=== PATIENT | female | born 1945 | race Hispanic/Latino ===

== ENCOUNTER → 2018-04-13 | Day surgery (SDC) | payer MEDICARE ==
[2018-04-12 12:17] LABS: BASOPHILS # (AUTO) 0.1 (0.0-0.1); BASOPHILS % 0.8 % (0.0-1.0); EOSINOPHILS # (AUTO) 0.3 (0.0-0.4); EOSINOPHILS % 4.6 % (0.0-6.0); HEMATOCRIT 34.8 % (34.2-44.1); HEMOGLOBIN 11.3 g/dL (12.0-16.0); LYMPHOCYTES % 28.7 % (18.0-39.1); MEAN CORPUSCULAR HEMOGLOBIN 26.7 pg (28-32); MEAN CORPUSCULAR HGB CONC 32.5 g/dL (31-35); MEAN CORPUSCULAR VOLUME 82.3 fL (81-99); MONOCYTES # (AUTO) 0.8 (0.2-0.8); MONOCYTES % 11.1 % (4.4-11.3); NEUTROPHILS # (AUTO) 3.9 (2.1-6.9); NEUTROPHILS % 54.2 % (38.7-80.0); PLATELET COUNT 312 x10e3/uL (140-360); RED BLOOD COUNT 4.23 x10e6/uL (3.6-5.1); RED CELL DISTRIBUTION WIDTH 13.6 % (11.7-14.4)
[2018-04-12 12:50] LABS: INR 0.83; PROTHROMBIN TIME 11.9 seconds (11.9-14.5)
[2018-04-12 12:53] LABS: ANION GAP 12.7 mmol/L (8-16); BLOOD UREA NITROGEN 16 mg/dL (7-26); BUN/CREATININE RATIO 20 (6-25); CALCIUM 9.8 mg/dL (8.4-10.2); CARBON DIOXIDE 24 mmol/L (22-29); CHLORIDE 95 mmol/L (98-107); CREATININE, SERUM 0.79 mg/dL (0.57-1.11); EST GLOMERULAR FILTRATION RATE > 60 ML/MIN (60-); GLUCOSE 353 mg/dL (74-118); POTASSIUM 4.7 mmol/L (3.5-5.1); SODIUM 127 mmol/L (136-145)
[~2018-04-13] VITALS: Ht 157.5 cm; Wt 63.5 kg
[~2018-04-13] MED LIST: AZITHROMYCIN250 MG PO; BENZOCAINE 20% SPR 60 ML CAN ONE; CARDIZEM CD180 MG PO; DIOVAN HCT 3201 EACH PO; FENTANYL CITRATE/PF 100MCG/2 ML INJ ONE; GLUCOPHAGE XR500 MG PO; GLUCOTROL5 MG PO; INSULIN REGULAR, HUMAN 100 UNIT/1 ML 3ML VIAL ONE; JANUVIA100 MG PO; LIDOCAINE HCL 2% LOCAL INJ 5 ML SDV VIAL INJ ONE; METOPROLOL SUCC50 MG PO; MIDAZOLAM HCL 2 MG/2 ML VIAL ONE; PANTOPRAZOLE SO40 MG PO; PRAVASTATIN SOD20 MG; PRINIVIL10 MG PO; PROPOFOL IV EMULSION 10 MG/ML 20 ML VIAL ONE; SODIUM CHLORIDE 0.9% 1000ML 1,000 ML ONE; TOPROL XL100 MG PO; ZOFRAN ODT4 MG PO
--- OUTSIDE RECORDS SUMMARY | 2018-04-13 08:36 | XMS REPORT | Summary of Care ---
Author Author [facility] [place] Organization [facility] [place] Address Unknown Phone Unavailable Encounter HQ Encntr_alias(FIN) [id number] Date(s): 08/18/16 - 08/18/16 [facility] [place] [address] [place] [phone] Discharge Disposition: Home or Self Care Attending Physician: Carlos Castro MD Vital Signs No data available for this section Problem List Condition Effective Dates Status Health Status Informant Diabetes Resolved mellitus(Confirmed) Hyperlipidemia(Confi Resolved rmed) Hypertension(Confirm Resolved ed) Allergies, Adverse Reactions, Alerts Substance Reaction Severity Status hydrALAZINE Active NKDA Active penicillins Active Medications No data available for this section Results No data available for this section Immunizations No data available for this section Procedures No data available for this section Social History No data available for this section Assessment and Plan No data available for this section
--- OUTSIDE RECORDS SUMMARY | 2018-04-13 08:36 | XMS REPORT | Continuity of Care Document ---
Author Author [facility] Interface Address Unknown Phone Unavailable Problems Problem Status Onset Date Classification Date Reported Comments Source Z12.31 - ENCNTR SCREEN MAMMOGRAM FOR MA Active 07/20/2016 [facility] V76.12 - SCREEN MAMMOGRA Active 10/27/2012 [facility] ELEVATED BLOOD PRESSURE Active 08/10/2012 [facility] HYPETENSION, DYSTONIC REACTION Active 08/10/2012 [facility] HYPERTENSION Active 01/07/2012 [facility] Diabetes mellitus Resolved Problem 08/21/2016 [facility] Hyperlipidemia Resolved Problem 08/21/2016 [facility] [place] Hypertension Resolved Problem 08/21/2016 [facility] [place] Diabetes mellitus Resolved Problem 08/13/2012 [facility] Hyperlipidemia Resolved Problem 08/13/2012 [facility] Hypertension Resolved Problem 08/13/2012 [facility] Medications Medication Details Route Status Patient Instructions Ordering Provider Order Date Source labetalol 200 mg oral tablet 200 mg, 1 tab, PO, BID, 60 tab, Substitution Allowed, TAB PO Active [facility] 08/11/2012 [facility] labetalol 200 mg, 1 tab, Route: PO, Drug form: TAB, BID, Dosing Weight 17.273, kg, Start date: 08/11/12 9:00:00, Duration: 30 day, Stop date: 09/09/12 17:00:00 PO No Longer Active [facility] 08/11/2012 [facility] insulin aspart 10 unit, 0.1 mL, Route: SUB-Q, Drug form: SOLN, TID-Before Meals, Dosing Weight 17.273, kg, PRN Blood Glucose Results, Start date: 08/11/12 4:54:00, Duration: 30 day, Stop date: 09/10/12 4:53:00 SUB-Q No Longer Active [facility] 08/11/2012 [facility] Dextrose 50% Syringe 25 gm, 50 mL, Route: IVP, Drug Form: INJ, Dosing Weight 17.273, kg, PRN, PRN Blood Glucose Results, Start date: 08/11/12 4:54:00, Duration: 30 day, Stop date: 09/10/12 4:53:00 IVP No Longer Active [facility] 08/11/2012 [facility] glucagon 1 mg, Route: IM, Drug form: PDR/INJ, PRN, Dosing Weight 17.273, kg, PRN Blood Glucose Results, Start date: 08/11/12 4:54:00, Duration: 30 day, Stop date: 09/10/12 4:53:00 IM No Longer Active [facility] 08/11/2012 [facility] metoprolol tartrate 50 mg, 1 tab, Route: PO, Drug form: TAB, Q12H, Dosing Weight 17.273, kg, Priority: STAT, Start date: 08/11/12 4:53:00, Duration: 30 day, Stop date: 09/09/12 21:00:00 PO No Longer Active [facility] 08/11/2012 [facility] acetaminophen 650 mg, 20.3 mL, Route: PO, Drug form: LIQ, Q4H, Dosing Weight 17.273, kg, PRN Pain 1-3/Temp > 100.4 F, Start date: 08/11/12 4:53:00, Duration: 30 day, Stop date: 09/10/12 4:52:00 PO No Longer Active [facility] 08/11/2012 [facility] morphine Sulfate 2 mg, 1 mL, Route: IVP, Drug form: INJ, Q3H, Dosing Weight 17.273, kg, PRN Pain Score 4-6, Start date: 08/11/12 4:53:00, Duration: 30 day, Stop date: 09/10/12 4:52:00 IVP No Longer Active [facility] 08/11/2012 [facility] ondansetron 4 mg, 2 mL, Route: IVP, Drug form: INJ, Q8H, Dosing Weight 17.273, kg, PRN Nausea & Vomiting, Start date: 08/11/12 4:53:00, Duration: 30 day, Stop date: 09/10/12 4:52:00 IVP No Longer Active [facility] 08/11/2012 [facility] nitroglycerin 0.4 mg sublingual tablet 0.4 mg, 1 tab, Route: SL, Drug form: TAB, Q5Min, PRN Chest Pain, Start date: 08/11/12 4:51:00, Duration: 30 day, Stop date: 09/10/12 4:50:00 SL No Longer Active [facility] 08/11/2012 [facility] atropine 0.5 mg, 5 mL, Route: IVP, Drug form: INJ, PRN, PRN Bradycardia, Start date: 08/11/12 4:51:00, Duration: 30 day, Stop date: 09/10/12 4:50:00 IVP No Longer Active [facility] 08/11/2012 [facility] metoprolol tartrate 50 mg, PO, BID, Substitution Allowed, TAB PO No Longer Active 08/11/2012 [facility] metFORmin 1000 mg oral tablet 1,000 mg, 1 tab, PO, BID, 30 tab, Substitution Allowed PO Active 08/11/2012 [facility] glipiZIDE 5 mg oral tablet 5 mg, 1 tab, PO, BID, Substitution Allowed, TAB PO Active 08/11/2012 [facility] Zofran 4 mg, 2 mL, Route: IV, Drug form: INJ, Q4H, Dosing Weight 17.273, kg, PRN as needed for nausea/vomiting, Start date: 08/10/12 20:33:00, Duration: 30 day, Stop date: 09/09/12 20:32:00 IV No Longer Active [facility] 08/11/2012 [facility] Phenergan 12.5 mg, Route: IVPB, ONCE, Dosing Weight 17.273, kg, Priority: STAT, Start date: 08/10/12 18:22:00, Stop date: 08/10/12 18:22:00 IVPB No Longer Active [facility] 08/10/2012 [facility] Zofran 4 mg, 2 mL, Route: IVP, Drug form: INJ, ONCE, Dosing Weight 17.273, kg, Priority: STAT, Start date: 08/10/12 17:18:00, Stop date: 08/10/12 17:18:00 IVP No Longer Active [facility] 08/10/2012 [facility] hydrALAZINE 10 mg, 0.5 mL, Route: IVP, Drug form: INJ, ONCE, Dosing Weight 17.273, kg, Priority: STAT, Start date: 08/10/12 16:05:00, Stop date: 08/10/12 16:05:00 IVP No Longer Active [facility] 08/10/2012 [facility] Sodium Chloride 0.9% IV 1,000 mL 1,000 mL, Rate: 100 ml/hr, Infuse over: 10 hr, Route: IV, kg, Total Volume: 1,000, Start date: 01/08/12 4:01:00, Duration: 30 day, Stop date: 02/07/12 4:00:00 IV No Longer Active [place] 01/08/2012 [facility] ondansetron 4 mg, Route: IVP, Drug form: INJ, ONCE, Dosing Weight 61.364, kg, Priority: STAT, Start date: 01/08/12 2:34:00, Stop date: 01/08/12 2:34:00 IVP No Longer Active [place] 01/08/2012 [facility] Saline Flush 0.9% 5 ml, Route: IVP, Drug Form: INJ, Dosing Weight 61.364, kg, PRN, PRN Line Flush, Start date: 01/08/12 1:18:00, Duration: 24 hr, Stop date: 01/09/12 1:17:00 IVP No Longer Active [place] 01/08/2012 [facility] aspirin 325 mg tablet 325 mg, 1 tab, Route: PO, Drug form: TAB, ONCE, Dosing Weight 61.364, kg, Priority: STAT, Start date: 01/08/12 1:18:00, Stop date: 01/08/12 1:18:00 PO No Longer Active [place] 01/08/2012 [facility] Allergies, Adverse Reactions, Alerts Substance Category Reaction Severity Reaction type Status Date Reported Comments Source hydrALAZINE drug allergy Allergy Active [facility] penicillins drug allergy Allergy Active [facility] Immunizations Immunization Date Given Site Status Last Updated Comments Source Results Order Name Results Value Reference Range Date Interpretation Comments Source Breast Mammo Scrn [facility] incl CAD MA Breast Mammo Scrn [facility] incl CAD MA - BREAST MAMMO SCRN [place] INCL CAD MA BILATERAL DIGITAL SCREENING MAMMOGRAM WITH CAD: 08/18/2016 CLINICAL: Routine/Screening. Current study was evaluated with a Computer Aided Detection (CAD) system. Comparison is made to exam dated: 11/30/2012 mammogram - [facility]. There are scattered fibroglandular densities in both breasts. There are benign vascular calcifications in both breasts. There also are benign scattered calcifications in both breasts. No significant masses, calcifications, or other findings are seen in either breast. There has been no significant interval change. IMPRESSION: BENIGN There is no mammographic evidence of malignancy. A 1 year screening mammogram is recommended. Professional services are provided by the [facility]. Charbel Woods M.D. cm/penrad:08/19/2016 08:38:25 Calender Machine Operator Helper: Cynthia MIRANDA(Vandana)(Ramone), Elle Marcelino This exam was dictated and interpreted by [id number] for OPAL Marcelino. letter sent: Normal exam Mammogram BI-RADS: 2 Benign 08/18/2016 - - Read by: Manuel Solorio MD Dictated Date/time: 08/19/16 08:38 Electronically Signed by: Manuel Solorio MD 08/19/16 08:38 FINAL REPORT [facility] Bone Density-Dual Energy Absorptionmetry Bone Density-Dual Energy Absorptionmetry - Bone Density-Dual Energy Absorptionmetry BONE DENSITY EVALUATION: 11/30/2012 CLINICAL DATA: Post menopausal. FINDINGS: Bone density evaluation was performed 11/30/2012 on the AP L1-L4 region of spine using Lunar Dual Energy X-Ray Absorptiometry. The BMD average for the exam is 0.957 g/cm2. The T-score is -1.90 and the Z-score is -0.10. These values indicate 98.0% for age-matched controls. This matches the World Health Organization's criteria for osteopenia and places the patient at a medium risk for fracture. An additional bone density evaluation was performed 11/30/2012 on the right femur neck using Lunar Dual Energy X-Ray Absorptiometry. The BMD average for the exam is 0.875 g/cm2. The T-score is -1.20 and the Z-score is 0.50. These values indicate 109.0% for age-matched controls. This matches the World Health Organization's criteria for osteopenia and places the patient at a medium risk for fracture. An additional bone density evaluation was performed 11/30/2012 on the right hip using Lunar Dual Energy X-Ray Absorptiometry. The BMD average for the exam is 0.831 g/cm2. The T-score is -1.40. These values indicate 101.0% for age- matched controls. This matches the World Health Organization's criteria for osteopenia and places the patient at a medium risk for fracture. An additional bone density evaluation was performed 11/30/2012 on the left femur neck using Lunar Dual Energy X-Ray Absorptiometry. The BMD average for the exam is 0.941 g/cm2. The T-score is -0.70 and the Z-score is 1.00. These values indicate 117.0% for age-matched controls. This matches the World Health Organization's criteria for normal bone density and places the patient within normal limits of fracture risk. An additional bone density evaluation was performed 11/30/2012 on the left hip using Lunar Dual Energy X-Ray Absorptiometry. The BMD average for the exam is 0.926 g/cm2. The T-score is -0.60 and the Z-score is 0.80. These values indicate 112.0% for age-matched controls. This matches the World Health Organization's criteria for normal bone density and places the patient within normal limits of fracture risk. IMPRESSION: OSTEOPENIA Patient is at medium risk for fracture. Dr. Yina patricio/penrad:11/30/2012 11:11:59 Calender Machine Operator Helper: Julia Laboy, [facility] 11/30/2012 - - Read by: Yina Jackson Dictated Date/time: 11/30/12 11:11 Electronically Signed by: Yina Jackson DO 11/30/12 11:11 FINAL REPORT [facility]ino Digital Mammo Screening [facility] MA Digital Mammo Screening [facility] MA - DIGITAL MAMMO SCREENING [facility] MA BILATERAL DIGITAL SCREENING MAMMOGRAM WITH CAD: 11/30/2012 CLINICAL: Routine. Current study was evaluated with a Computer Aided Detection (CAD) system. No prior exams were available for comparison. There are scattered fibroglandular elements in both breasts that could obscure a lesion on mammography. No significant masses, calcifications, or other findings are seen in either breast. IMPRESSION: NEGATIVE There is no mammographic evidence of malignancy. A screening mammogram in one year is recommended. Dr. Yina Jackson D.O. ht/penrad:11/30/2012 10:01:23 Calender Machine Operator Helper: Tiarra MIRANDA(R)(M), [facility] This exam was dictated and interpreted by [id number] for Dinesh Mckay. letter sent: Normal exam Mammogram BI-RADS: 1 Negative 11/30/2012 - - Read by: Yina Jackson Dictated Date/time: 11/30/12 10:01 Electronically Signed by: Yina Jackson DO 11/30/12 10:01 FINAL REPORT [facility] CHEMISTRY eGFR 66 mL/min/1.73m2 08/11/2012 NA 3Result Comment: The eGFR is calculated using the CKD-EPI formula. In most young, healthy individuals the eGFR will be >90 mL/min/1.73m2. The eGFR declines with age. An eGFR of 60-89 may be normal in some populations, particularly the elderly, for whom the CKD-EPI formula has not been extensively validated. Use of the eGFR is not recommended in the following populations: Individuals with unstable creatinine concentrations, including patients and those with serious co-morbid conditions. Patients with extremes in muscle mass or diet. The data above are obtained from the National Kidney Disease Education Program (NKDEP) which additionally recommends that when the eGFR is used in patients with extremes of body mass index for purposes of drug dosing, the eGFR should be multiplied by the estimated BMI. [facility] CHEMISTRY Calcium Lvl 8.5 mg/dL 8.5 - 10.5 08/11/2012 Normal [facility] CHEMISTRY B/C Ratio 13 6 - 25 08/11/2012 Normal [facility] CHEMISTRY Total Protein 6.8 g/dL 6.4 - 8.4 08/11/2012 Normal [facility] CHEMISTRY Albumin Lvl 2.9 g/dL 3.5 - 5.0 08/11/2012 LOW [facility] CHEMISTRY AGAP 17.1 meq/L 10.0 - 20.0 08/11/2012 Normal [facility] CHEMISTRY A/G Ratio 0.7 0.7 - 1.6 08/11/2012 Normal [facility] CHEMISTRY ALT 18 unit/L 0 - 65 08/11/2012 Normal [facility] CHEMISTRY Alk Phos 84 unit/L 39 - 136 08/11/2012 Normal [facility] CHEMISTRY Globulin 3.9 g/dL 2.0 - 4.0 08/11/2012 Normal [facility] CHEMISTRY Bili Total 0.4 mg/dL 0.2 - 1.3 08/11/2012 Normal [facility] CHEMISTRY AST 20 unit/L 0 - 37 08/11/2012 Normal [facility] CHEMISTRY BUN 12 mg/dL 7 - 22 08/11/2012 Normal [facility] CHEMISTRY Creatinine Lvl 0.9 mg/dL 0.5 - 1.4 08/11/2012 Normal [facility] CHEMISTRY CO2 21 meq/L 24 - 32 08/11/2012 LOW [facility] CHEMISTRY Glucose Lvl 224 mg/dL 70 - 99 08/11/2012 HI 5Interpretive Data: Adult reference range values reflect the clinical guidelines of the [place] [employer]. [facility] CHEMISTRY Chloride Lvl 96 meq/L 95 - 109 08/11/2012 Normal [facility] CHEMISTRY Sodium Lvl 130 meq/L 135 - 145 08/11/2012 LOW [facility] CHEMISTRY Potassium Lvl 4.1 meq/L 3.5 - 5.1 08/11/2012 Normal [facility] HEMATOLOGY Platelet 275 K/CMM 133 - 450 08/11/2012 Normal [facility] HEMATOLOGY MPV 7.5 fL 7.4 - 10.4 08/11/2012 Normal [facility] HEMATOLOGY RDW 14.3 % 11.5 - 14.5 08/11/2012 Normal [facility] HEMATOLOGY MCH 25.9 pg 27.0 - 31.0 08/11/2012 [facility] HEMATOLOGY MCHC 32.1 g/dL 32.0 - 36.0 08/11/2012 Normal [facility] HEMATOLOGY MCV 80.8 fL 81.0 - 99.0 08/11/2012 [facility] HEMATOLOGY Hct 34.0 % 36.0 - 48.0 08/11/2012 [facility] HEMATOLOGY Hgb 10.9 g/dL 12.0 - 16.0 08/11/2012 [facility] HEMATOLOGY RBC 4.21 M/CMM 4.20 - 5.40 08/11/2012 Normal [facility] HEMATOLOGY WBC 6.9 K/CMM 3.7 - 10.4 08/11/2012 Normal [facility] HEMATOLOGY Basophils # 0.0 K/CMM 0.0 - 0.2 08/11/2012 Normal [facility] HEMATOLOGY Eosinophils # 0.1 K/CMM 0.0 - 0.5 08/11/2012 Normal [facility] HEMATOLOGY Monocytes # 0.7 K/CMM 0.0 - 0.8 08/11/2012 Normal [facility] HEMATOLOGY Segs-Bands # 4.6 K/CMM 1.5 - 8.1 08/11/2012 Normal [facility] HEMATOLOGY Lymphocytes # 1.4 K/CMM 1.0 - 5.5 08/11/2012 Normal [facility] HEMATOLOGY Monocytes 10.3 % 2.0 - 12.0 08/11/2012 Normal [facility] HEMATOLOGY Eosinophils 1.8 % 0.0 - 4.0 08/11/2012 Normal [facility] HEMATOLOGY Basophils 0.3 % 0.0 - 1.0 08/11/2012 Normal [facility] HEMATOLOGY Lymphocytes 20.9 % 20.0 - 40.0 08/11/2012 Normal [facility] HEMATOLOGY Segs 66.7 % 45.0 - 75.0 08/11/2012 Normal [facility] BEDSIDE GLUCOSE TESTING Gluc POC Lifscn 101 mg/dL 70 - 99 08/11/2012 HI 1Interpretive Data: Upper Reportable Limit: 200 mg/dL. [facility] BEDSIDE GLUCOSE TESTING Comment1 Notify RN/ 08/11/2012 NA [facility] BEDSIDE GLUCOSE TESTING Gluc POC Lif[place]n 176 mg/dL 70 - 99 08/11/2012 HI 2Interpretive Data: Upper Reportable Limit: 200 mg/dL. [facility] CHEMISTRY Total CK 136 unit/L 12 - 191 08/10/2012 Normal [facility] CHEMISTRY BNP 102 pg/mL <=100 08/10/2012 HI 7Interpretive Data: Elevated results are in line with increasing severity of congestive heart failure. Minor elevations between 100 and 300 may be seen with Myocardial Ischemia, Sodium retaining drugs, and compensated/treated heart failure. [facility] CHEMISTRY eGFR 89 mL/min/1.73m2 08/10/2012 NA 4Result Comment: The eGFR is calculated using the CKD-EPI formula. In most young, healthy individuals the eGFR will be >90 mL/min/1.73m2. The eGFR declines with age. An eGFR of 60-89 may be normal in some populations, particularly the elderly, for whom the CKD-EPI formula has not been extensively validated. Use of the eGFR is not recommended in the following populations: Individuals with unstable creatinine concentrations, including patients and those with serious co-morbid conditions. Patients with extremes in muscle mass or diet. The data above are obtained from the National Kidney Disease Education Program (NKDEP) which additionally recommends that when the eGFR is used in patients with extremes of body mass index for purposes of drug dosing, the eGFR should be multiplied by the estimated BMI. [facility] CHEMISTRY AST 19 unit/L 0 - 37 08/10/2012 Normal [facility] CHEMISTRY AGAP 15.5 meq/L 10.0 - 20.0 08/10/2012 Normal [facility] CHEMISTRY B/C Ratio 17 6 - 25 08/10/2012 Normal [facility] CHEMISTRY Globulin 4.4 g/dL 2.0 - 4.0 08/10/2012 HI [facility] CHEMISTRY A/G Ratio 0.8 0.7 - 1.6 08/10/2012 Normal [facility] CHEMISTRY Glucose Lvl 108 mg/dL 70 - 99 08/10/2012 HI 6Interpretive Data: Adult reference range values reflect the clinical guidelines of the [place] [employer]. [facility] CHEMISTRY Creatinine Lvl 0.7 mg/dL 0.5 - 1.4 08/10/2012 Normal [facility] CHEMISTRY BUN 12 mg/dL 7 - 22 08/10/2012 Normal [facility] CHEMISTRY Calcium Lvl 9.1 mg/dL 8.5 - 10.5 08/10/2012 Normal [facility] CHEMISTRY CO2 24 meq/L 24 - 32 08/10/2012 Normal [facility] CHEMISTRY Albumin Lvl 3.7 g/dL 3.5 - 5.0 08/10/2012 Normal [facility] CHEMISTRY Total Protein 8.1 g/dL 6.4 - 8.4 08/10/2012 Normal [facility] CHEMISTRY Alk Phos 97 unit/L 39 - 136 08/10/2012 Normal [facility] CHEMISTRY ALT 20 unit/L 0 - 65 08/10/2012 Normal [facility] CHEMISTRY Bili Total 0.3 mg/dL 0.2 - 1.3 08/10/2012 Normal [facility] CHEMISTRY Sodium Lvl 129 meq/L 135 - 145 08/10/2012 LOW [facility] CHEMISTRY Potassium Lvl 4.5 meq/L 3.5 - 5.1 08/10/2012 Normal [facility] CHEMISTRY Chloride Lvl 94 meq/L 95 - 109 08/10/2012 LOW [facility] CHEMISTRY Troponin-I null 0.00 - 0.40 08/10/2012 Normal [facility] CHEMISTRY CK MB 3.2 ng/mL 0.5 - 3.6 08/10/2012 Normal [facility] CHEMISTRY CK MB Index 2.4 0.0 - 2.5 08/10/2012 Normal [facility] HEMATOLOGY MPV 7.2 fL 7.4 - 10.4 08/10/2012 LOW [facility] HEMATOLOGY Hct 34.9 % 36.0 - 48.0 08/10/2012 LOW [facility] HEMATOLOGY MCV 80.6 fL 81.0 - 99.0 08/10/2012 LOW [facility] MCH 26.8 pg 27.0 - 31.0 08/10/2012 LOW [facility] MCHC 33.2 g/dL 32.0 - 36.0 08/10/2012 Normal [facility] HEMATOLOGY Platelet 281 K/CMM 133 - 450 08/10/2012 Normal [facility] RDW 14.4 % 11.5 - 14.5 08/10/2012 Normal [facility] RBC 4.33 M/CMM 4.20 - 5.40 08/10/2012 Normal [facility] Hgb 11.6 g/dL 12.0 - 16.0 08/10/2012 LOW [facility] WBC 8.0 K/CMM 3.7 - 10.4 08/10/2012 Normal [facility] Lymphocytes 27.5 % 20.0 - 40.0 08/10/2012 Normal [facility] HEMATOLOGY Segs 58.2 % 45.0 - 75.0 08/10/2012 Normal [facility] Basophils 0.7 % 0.0 - 1.0 08/10/2012 Normal [facility] Monocytes 9.9 % 2.0 - 12.0 08/10/2012 Normal [facility] Eosinophils 3.7 % 0.0 - 4.0 08/10/2012 Normal [facility] Basophils # 0.1 K/CMM 0.0 - 0.2 08/10/2012 Normal [facility] Eosinophils # 0.3 K/CMM 0.0 - 0.5 08/10/2012 Normal [facility] Segs-Bands # 4.7 K/CMM 1.5 - 8.1 08/10/2012 Normal [facility] Monocytes # 0.8 K/CMM 0.0 - 0.8 08/10/2012 Normal [facility] HEMATOLOGY Lymphocytes # 2.2 K/CMM 1.0 - 5.5 08/10/2012 Normal [facility] Brain wo contrast CT Brain wo contrast CT CT head no contrast. COMPARISON: No priors. TECHNIQUE: Contiguous transaxial images of the brain were performed without administration of IV contrast. FINDINGS: There is no evidence for parenchymal bleed, extra-axial collections, intracranial masses or midline shift. No significant bony abnormality is noted in the calvarium. There is minimal age-appropriate cerebral atrophy. No acute infarct is evident. The visualized paranasal sinuses and the mastoids are clear. IMPRESSION: No significant acute brain abnormality is noted. SL:08/10/2012 - - Read by: Mathieu Goodson Dictated Date/time: 08/11/12 07:49 Electronically Signed by: Mathieu Goodson MD 08/11/12 07:52 FINAL REPORT [facility] Chest 2 views Chest 2 views CHEST 2 VIEWS HX: Chest pain COMPARISON: 01/08/2012 at 00: 55 FINDINGS: The lungs are free of consolidation or pleural effusion and the mediastinal silhouette is within normal limits of size. The visualized osseous structures are grossly negative. IMPRESSION: Negative chest. SL: 08/10/2012 - - Read by: Gallito Faye Dictated Date/time: 08/10/12 17:00 Electronically Signed by: Gallito Faye MD 08/10/12 17:01 FINAL REPORT [facility] Total CK 110 unit/L 12 - 191 01/08/2012 Normal [facility] CHEMISTRY Troponin-I null 0.00 - 0.40 01/08/2012 Normal [facility] CHEMISTRY CK MB 2.6 ng/mL 0.5 - 3.6 01/08/2012 Normal [facility] CHEMISTRY eGFR 95 mL/min/1.73m2 01/08/2012 NA 1Result Comment: The eGFR is calculated using the CKD-EPI formula. In most young, healthy individuals the eGFR will be >90 mL/min/1.73m2. The eGFR declines with age. An eGFR of 60-89 may be normal in some populations, particularly the elderly, for whom the CKD-EPI formula has not been extensively validated. Use of the eGFR is not recommended in the following populations: Individuals with unstable creatinine concentrations, including patients and those with serious co-morbid conditions. Patients with extremes in muscle mass or diet. The data above are obtained from the National Kidney Disease Education Program (NKDEP) which additionally recommends that when the eGFR is used in patients with extremes of body mass index for purposes of drug dosing, the eGFR should be multiplied by the estimated BMI. [facility] CHEMISTRY Calcium Lvl 8.9 mg/dL 8.5 - 10.5 01/08/2012 Normal [facility] CHEMISTRY Albumin Lvl 3.6 g/dL 3.5 - 5.0 01/08/2012 Normal [facility] CHEMISTRY CO2 24 meq/L 24 - 32 01/08/2012 Normal [facility] CHEMISTRY AGAP 12.8 meq/L 10.0 - 20.0 01/08/2012 Normal [facility] [facility] CHEMISTRY B/C Ratio 10 6 - 25 01/08/2012 Normal [facility] CHEMISTRY Glucose Lvl 201 mg/dL 70 - 99 01/08/2012 HI 2Interpretive Data: Adult reference range values reflect the clinical guidelines of the [place] [employer]. [facility] CHEMISTRY Creatinine Lvl 0.6 mg/dL 0.5 - 1.4 01/08/2012 Normal [facility] CHEMISTRY BUN 6 mg/dL 7 - 22 01/08/2012 LOW [facility] CHEMISTRY Chloride Lvl 88 meq/L 95 - 109 01/08/2012 LOW [facility] CHEMISTRY Sodium Lvl 121 meq/L 135 - 145 01/08/2012 LOW [facility] CHEMISTRY Potassium Lvl 3.8 meq/L 3.5 - 5.1 01/08/2012 Normal [facility] CHEMISTRY AST 16 unit/L 0 - 37 01/08/2012 Normal [facility] CHEMISTRY Globulin 4.2 g/dL 2.0 - 4.0 01/08/2012 HI [facility] CHEMISTRY A/G Ratio 0.9 0.7 - 1.6 01/08/2012 Normal [facility] CHEMISTRY Total Protein 7.8 g/dL 6.4 - 8.4 01/08/2012 Normal [facility] CHEMISTRY ALT 19 unit/L 0 - 65 01/08/2012 Normal [facility] CHEMISTRY Bili Total 0.4 mg/dL 0.2 - 1.3 01/08/2012 Normal [facility] CHEMISTRY Alk Phos 71 unit/L 39 - 136 01/08/2012 Normal [facility] CHEMISTRY CK MB Index 2.4 0.0 - 2.5 01/08/2012 Normal [facility] HEMATOLOGY INR 0.97 0.85 - 1.17 01/08/2012 Normal 3Interpretive Data: RECOMMENDED RANGES FOR PROTIME INR: 2.0-3.0 for most medical and surgical thromboembolic states. 2.5-3.5 for artificial heart valves and recurrent embolism. INR SHOULD BE USED ONLY FOR PATIENTS ON STABLE ANTICOAGULANT THERAPY. [facility] HEMATOLOGY PTT 31.2 s 22.9 - 35.8 01/08/2012 Normal 4Interpretive Data: Heparin Therapeutic Range: 57 - 92 Seconds [facility] HEMATOLOGY PT 13.1 s 12.0 - 14.7 01/08/2012 Normal [facility] HEMATOLOGY MPV 7.4 fL 7.4 - 10.4 01/08/2012 Normal [facility] HEMATOLOGY RBC 4.41 M/CMM 4.20 - 5.40 01/08/2012 Normal [facility] HEMATOLOGY WBC 7.0 K/CMM 3.7 - 10.4 01/08/2012 Normal [facility] HEMATOLOGY MCV 82.7 fL 81.0 - 99.0 01/08/2012 Normal [facility] HEMATOLOGY Hct 36.4 % 36.0 - 48.0 01/08/2012 Normal [facility] HEMATOLOGY Hgb 11.9 g/dL 12.0 - 16.0 01/08/2012 LOW [facility] HEMATOLOGY Platelet 294 K/CMM 133 - 450 01/08/2012 Normal [facility] HEMATOLOGY RDW 13.2 % 11.5 - 14.5 01/08/2012 Normal [facility] HEMATOLOGY MCHC 32.7 g/dL 32.0 - 36.0 01/08/2012 Normal [facility] HEMATOLOGY MCH 27.0 pg 27.0 - 31.0 01/08/2012 Normal [facility] HEMATOLOGY Eosinophils # 0.1 K/CMM 0.0 - 0.5 01/08/2012 Normal [facility] HEMATOLOGY Lymphocytes # 1.9 K/CMM 1.0 - 5.5 01/08/2012 Normal [facility] HEMATOLOGY Monocytes # 0.6 K/CMM 0.0 - 0.8 01/08/2012 Normal [facility] HEMATOLOGY Segs-Bands # 4.4 K/CMM 1.5 - 8.1 01/08/2012 Normal [facility] HEMATOLOGY Basophils 0.6 % 0.0 - 1.0 01/08/2012 Normal [facility] HEMATOLOGY Basophils # 0.0 K/CMM 0.0 - 0.2 01/08/2012 Normal [facility] HEMATOLOGY Eosinophils 1.9 % 0.0 - 4.0 01/08/2012 Normal [facility] HEMATOLOGY Monocytes 8.0 % 2.0 - 12.0 01/08/2012 Normal [facility] HEMATOLOGY Segs 63.0 % 45.0 - 75.0 01/08/2012 Normal [facility] HEMATOLOGY Lymphocytes 26.5 % 20.0 - 40.0 01/08/2012 Normal [facility] Vital Signs Vital Sign Value Date Comments Source Heart Rate 59 08/11/2012 [facility] Temperature Oral (F) 98.4 F 08/11/2012 [facility] Respitory Rate 20 08/11/2012 [facility] Diastolic (mm Hg) 66 08/11/2012 [facility] Systolic (mm Hg) 159 08/11/2012 [facility] Weight 62.727 08/11/2012 [facility] Height 160.02 cm 08/11/2012 [facility] Heart Rate 73 08/11/2012 [facility] Temperature Oral (F) 98.3 F 08/11/2012 [facility] Systolic (mm Hg) 180 08/11/2012 [facility] Respitory Rate 16 08/11/2012 [facility] Diastolic (mm Hg) 67 08/11/2012 [facility] Weight 17.273 08/11/2012 [facility] Height 157.48 cm 08/11/2012 [facility] Height 157.48 cm 08/10/2012 [facility] Weight 17.273 08/10/2012 [facility] Weight 61.364 01/08/2012 [facility] Encounters Location Location Details Encounter Type Encounter Number Reason For Visit Attending Provider ADM Date DC Date Status Source [facility] Emergency [id number] HYPERTENSION BOBBI BOWERS 01/07/2012 01/08/2012 Active [facility] OU [id number] HYPETENSION, DYSTONIC REACTION ASHKAN GRIFFIN 08/11/2012 08/11/2012 Active [facility] OD [id number] V76.12 - SCREEN MAMMOGRA ZACHERY CUELLAR 11/30/2012 11/30/2012 Active [facility] [place] [facility] [place] [facility] [id number] Carlos Castro 08/18/2016 08/19/2016 JORGE ALBERTOD [place] Procedures Procedure Code Date Perfomer Comments Source
--- OUTSIDE RECORDS SUMMARY | 2018-04-13 08:36 | XMS REPORT | CCD ---
Author Author Auto Generated Organization [facility] Address Unknown Phone Unavailable Care Team Providers Care Scientific Diver Name Role Phone John Philip CP Allergies, Adverse Reactions, Alerts Substance Reaction Status NKDA Active Medications Medication Instructions Start Date End Date Status ondansetron 4 mg, Route: IVP, Drug form: INJ, 01/08/2012 01/08/2012 Completed ONCE, Dosing Weight 61.364, kg, Priority: STAT, Start date: 01/08/12 2:34:00, Stop date: 01/08/12 2:34:00 Saline Flush 0.9% 5 ml, Route: IVP, Drug Form: INJ, 01/08/2012 01/08/2012 Discontinued Dosing Weight 61.364, kg, PRN, PRN Line Flush, Start date: 01/08/12 1:18:00, Duration: 24 hr, Stop date: 01/09/12 1:17:00 aspirin 325 mg 325 mg, 1 tab, Route: PO, Drug 01/08/2012 01/08/2012 Completed tablet form: TAB, ONCE, Dosing Weight 61.364, kg, Priority: STAT, Start date: 01/08/12 1:18:00, Stop date: 01/08/12 1:18:00 Sodium Chloride 0.9% 1,000 mL, Rate: 100 ml/hr, Infuse 01/08/2012 01/08/2012 Discontinued IV 1,000 mL over: 10 hr, Route: IV, kg, Total Volume: 1,000, Start date: 01/08/12 4:01:00, Duration: 30 day, Stop date: 02/07/12 4:00:00 Vital Signs Most recent to oldest [Reference Range]: 1 Weight 61.364 kg (01/08/2012 00:00:00) Results CHEMISTRY Most recent to oldest [Reference Range]: 1 Sodium Lvl [135-145 mEq/L] 121 mEq/L *LOW* (01/08/2012:15:00) Potassium Lvl [3.5-5.1 mEq/L] 3.8 mEq/L (01/08/2012:15:00) Chloride Lvl [95-109 mEq/L] 88 mEq/L *LOW* (01/08/2012:15:00) CO2 [24-32 mEq/L] 24 mEq/L (01/08/2012:15:00) AGAP [10.0-20.0 mEq/L] 12.8 mEq/L (01/08/2012:15:00) Creatinine Lvl [0.5-1.4 mg/dL] 0.6 mg/dL (01/08/2012:15:00) eGFR 95 mL/min/1.73m2 1 *NA* (01/08/2012:15:00) BUN [7-22 mg/dL] 6 mg/dL *LOW* (01/08/2012:15:00) B/C Ratio [6-25] 10 (01/08/2012:15:00) Glucose Lvl [70-99 mg/dL] 201 mg/dL 2 *HI* (01/08/2012:15:00) Total Protein [6.4-8.4 g/dL] 7.8 g/dL (01/08/2012:15:00) Albumin Lvl [3.5-5.0 g/dL] 3.6 g/dL (01/08/2012:15:00) Globulin [2.0-4.0 g/dL] 4.2 g/dL *HI* (01/08/2012:15:00) A/G Ratio [0.7-1.6] 0.9 (01/08/2012:15:00) Calcium Lvl [8.5-10.5 mg/dL] 8.9 mg/dL (01/08/2012:15:00) ALT [0-65 unit/L] 19 unit/L (01/08/2012:15:00) AST [0-37 unit/L] 16 unit/L (01/08/2012:15:00) Alk Phos [39-136 unit/L] 71 unit/L (01/08/2012:) Bili Total [0.2-1.3 mg/dL] 0.4 mg/dL (01/08/2012:) Total CK [12-191 unit/L] 110 unit/L (01/08/2012:) CK MB [0.5-3.6 ng/mL] 2.6 ng/mL (01/08/2012:) CK MB Index [0.0-2.5] 2.4 (01/08/2012:) Troponin-I [0.00-0.40 ng/mL] <0.02 ng/mL (01/08/2012:) 1Result Comment: The eGFR is calculated using [...] from the National Kidney Disease Education Program ( NKDEP) which additionally recommends that when the eGFR is used in patients with extremes of body mass index for purposes of drug dosing, the eGFR should be mul tiplied by the estimated BMI. 2Interpretive Data: Adult reference range values reflect the clinical guidelines of the [place] [employer]. HEMATOLOGY Most recent to oldest [Reference Range]: 1 WBC [3.7-10.4 K/CMM] 7.0 K/CMM (01/08/2012:) RBC [4.20-5.40 M/CMM] 4.41 M/CMM (01/08/2012:) Hgb [12.0-16.0 g/dL] 11.9 g/dL *LOW* (01/08/2012) Hct [36.0-48.0 %] 36.4 % (01/08/2012) MCV [81.0-99.0 fL] 82.7 fL (01/08/2012:15:00) MCH [27.0-31.0 pg] 27.0 pg (01/08/2012:1500) MCHC [32.0-36.0 g/dL] 32.7 g/dL (01/08/2012:15:00) RDW [11.5-14.5 %] 13.2 % (01/08/2012:15) Platelet [133-450 K/CMM] 294 K/CMM (01/08/2012:15:) MPV [7.4-10.4 fL] 7.4 fL (01/08/2012:) Segs [45.0-75.0 %] 63.0 % (01/08/2012:15:) Lymphocytes [20.0-40.0 %] 26.5 % (01/08/2012:15) Monocytes [2.0-12.0 %] 8.0 % (01/08/2012:15:00) Eosinophils [0.0-4.0 %] 1.9 % (01/08/2012:15:) Basophils [0.0-1.0 %] 0.6 % (01/08/2012:15:00) Segs-Bands # [1.5-8.1 K/CMM] 4.4 K/CMM (01/08/2012:15:00) Lymphocytes # [1.0-5.5 K/CMM] 1.9 K/CMM (01/08/2012:15:00) Monocytes # [0.0-0.8 K/CMM] 0.6 K/CMM (01/08/2012:15:00) Eosinophils # [0.0-0.5 K/CMM] 0.1 K/CMM (01/08/2012:15:00) Basophils # [0.0-0.2 K/CMM] 0.0 K/CMM (01/08/2012:15:00) PT [12.0-14.7 seconds] 13.1 seconds (01/08/2012 01:15:00) INR [0.85-1.17] 0.97 3 (01/08/2012 01:15:00) PTT [22.9-35.8 seconds] 31.2 seconds 4 (01/08/2012 01:15:00) 3Interpretive Data: RECOMMENDED RANGES FOR PROTIME INR: 2.0-3.0 for most medical and surgical thromboembolic states. 2.5-3.5 for artificial heart valves and recurrent embolism. INR SHOULD BE USED ONLY FOR PATIENTS ON STABLE ANTICOAGULANT THERAPY. 4Interpretive Data: Heparin Therapeutic Range: 57 - 92 Seconds
--- OUTSIDE RECORDS SUMMARY | 2018-04-13 08:37 | XMS REPORT | CCD ---
Author Author Auto Generated Organization [facility] Outpatient Imaging - [place] Address Unknown Phone Unavailable Care Team Providers Care Tilt Tray Driver Name Role Phone Jeffrey Carty CP Allergies, Adverse Reactions, Alerts Substance Reaction Status hydrALAZINE Active NKDA Active penicillins Active Problem List Condition Effective Dates Status Diabetes mellitus Resolved Hyperlipidemia Resolved Hypertension Resolved
--- OUTSIDE RECORDS SUMMARY | 2018-04-13 08:37 | XMS REPORT | CCD ---
Author Author Auto Generated Organization [facility] Outpatient Imaging - [place] Address Unknown Phone Unavailable Care Team Providers Care Pencil Maker Name Role Phone Jeffrey Carty CP Allergies, Adverse Reactions, Alerts Substance Reaction Status hydrALAZINE Active NKDA Active penicillins Active Problem List Condition Effective Dates Status Diabetes mellitus Resolved Hyperlipidemia Resolved Hypertension Resolved
--- OUTSIDE RECORDS SUMMARY | 2018-04-13 08:37 | XMS REPORT | CCD ---
Author Author Auto Generated Organization [facility] Outpatient Imaging - [place] Address Unknown Phone Unavailable Care Team Providers Care Scientologist Name Role Phone Jeffrey Carty CP Allergies, Adverse Reactions, Alerts Substance Reaction Status hydrALAZINE Active NKDA Active penicillins Active Problem List Condition Effective Dates Status Diabetes mellitus Resolved Hyperlipidemia Resolved Hypertension Resolved
--- OUTSIDE RECORDS SUMMARY | 2018-04-13 08:37 | XMS REPORT | CCD ---
Author Author Auto Generated Organization [facility] Address Unknown Phone Unavailable Care Team Providers Care Aviculturist Name Role Phone Alejandro Griffin CP Allergies, Adverse Reactions, Alerts Substance Reaction Status hydrALAZINE Active NKDA Active penicillins Active Problem List Condition Effective Dates Status Diabetes mellitus Resolved Hyperlipidemia Resolved Hypertension Resolved Medications Medication Instructions Start Date End Date Status hydrALAZINE 10 mg, 0.5 mL, Route: IVP, Drug 08/10/2012 08/10/2012 Completed form: INJ, ONCE, Dosing Weight 17.273, kg, Priority: STAT, Start date: 08/10/12 16:05:00, Stop date: 08/10/12 16:05:00 Phenergan 12.5 mg, Route: IVPB, ONCE, Dosing 08/10/2012 08/10/2012 Completed Weight 17.273, kg, Priority: STAT, Start date: 08/10/12 18:22:00, Stop date: 08/10/12 18:22:00 Zofran 4 mg, 2 mL, Route: IV, Drug form: 08/10/2012 08/11/2012 Discontinued INJ, Q4H, Dosing Weight 17.273, kg, PRN as needed for nausea/vomiting, Start date: 08/10/12 20:33:00, Duration: 30 day, Stop date: 09/09/12 20:32:00 labetalol 200 mg 200 mg, 1 tab, PO, BID, 60 tab, 08/11/2012 Ordered oral tablet Substitution Allowed, TAB metoprolol tartrate 50 mg, PO, BID, Substitution 08/11/2012 08/11/2012 Discontinued Allowed, TAB metFORmin 1000 mg 1,000 mg, 1 tab, PO, BID, 30 tab, 08/11/2012 Ordered oral tablet Substitution Allowed glipiZIDE 5 mg oral 5 mg, 1 tab, PO, BID, Substitution 08/11/2012 Ordered tablet Allowed, TAB insulin aspart 10 unit, 0.1 mL, Route: SUB-Q, Drug 08/11/2012 08/11/2012 Discontinued form: SOLN, TID-Before Meals, Dosing Weight 17.273, kg, PRN Blood Glucose Results, Start date: 08/11/12 4:54:00, Duration: 30 day, Stop date: 09/10/12 4:53:00 insulin aspart 8 unit, 0.08 mL, Route: SUB-Q, Drug 08/11/2012 08/11/2012 Discontinued form: SOLN, TID-Before Meals, Dosing Weight 17.273, kg, PRN Blood Glucose Results, Start date: 08/11/12 4:54:00, Duration: 30 day, Stop date: 09/10/12 4:53:00 insulin aspart 6 unit, 0.06 mL, Route: SUB-Q, Drug 08/11/2012 08/11/2012 Discontinued form: SOLN, TID-Before Meals, Dosing Weight 17.273, kg, PRN Blood Glucose Results, Start date: 08/11/12 4:54:00, Duration: 30 day, Stop date: 09/10/12 4:53:00 insulin aspart 4 unit, 0.04 mL, Route: SUB-Q, Drug 08/11/2012 08/11/2012 Discontinued form: SOLN, TID-Before Meals, Dosing Weight 17.273, kg, PRN Blood Glucose Results, Start date: 08/11/12 4:54:00, Duration: 30 day, Stop date: 09/10/12 4:53:00 insulin aspart 2 unit, 0.02 mL, Route: SUB-Q, Drug 08/11/2012 08/11/2012 Discontinued form: SOLN, TID-Before Meals, Dosing Weight 17.273, kg, PRN Blood Glucose Results, Start date: 08/11/12 4:54:00, Duration: 30 day, Stop date: 09/10/12 4:53:00 Dextrose 50% Syringe 25 gm, 50 mL, Route: IVP, Drug 08/11/2012 08/11/2012 Discontinued Form: INJ, Dosing Weight 17.273, kg, PRN, PRN Blood Glucose Results, Start date: 08/11/12 4:54:00, Duration: 30 day, Stop date: 09/10/12 4:53:00 Dextrose 50% Syringe 12.5 gm, 25 mL, Route: IVP, Drug 08/11/2012 08/11/2012 Discontinued Form: INJ, Dosing Weight 17.273, kg, PRN, PRN Blood Glucose Results, Start date: 08/11/12 4:54:00, Duration: 30 day, Stop date: 09/10/12 4:53:00 glucagon 1 mg, Route: IM, Drug form: 08/11/2012 08/11/2012 Discontinued PDR/INJ, PRN, Dosing Weight 17.273, kg, PRN Blood Glucose Results, Start date: 08/11/12 4:54:00, Duration: 30 day, Stop date: 09/10/12 4:53:00 metoprolol tartrate 50 mg, 1 tab, Route: PO, Drug form: 08/11/2012 08/11/2012 Discontinued TAB, Q12H, Dosing Weight 17.273, kg, Priority: STAT, Start date: 08/11/12 4:53:00, Duration: 30 day, Stop date: 09/09/12 21:00:00 labetalol 200 mg, 1 tab, Route: PO, Drug 08/11/2012 08/11/2012 Discontinued form: TAB, BID, Dosing Weight 17.273, kg, Start date: 08/11/12 9:00:00, Duration: 30 day, Stop date: 09/09/12 17:00:00 Zofran 4 mg, 2 mL, Route: IVP, Drug form: 08/10/2012 08/10/2012 Completed INJ, ONCE, Dosing Weight 17.273, kg, Priority: STAT, Start date: 08/10/12 17:18:00, Stop date: 08/10/12 17:18:00 acetaminophen 650 mg, 20.3 mL, Route: PO, Drug 08/11/2012 08/11/2012 Discontinued form: LIQ, Q4H, Dosing Weight 17.273, kg, PRN Pain 1-3/Temp > 100.4 F, Start date: 08/11/12 4:53:00, Duration: 30 day, Stop date: 09/10/12 4:52:00 morphine Sulfate 2 mg, 1 mL, Route: IVP, Drug form: 08/11/2012 08/11/2012 Discontinued INJ, Q3H, Dosing Weight 17.273, kg, PRN Pain Score 4-6, Start date: 08/11/12 4:53:00, Duration: 30 day, Stop date: 09/10/12 4:52:00 ondansetron 4 mg, 2 mL, Route: IVP, Drug form: 08/11/2012 08/11/2012 Discontinued INJ, Q8H, Dosing Weight 17.273, kg, PRN Nausea & Vomiting, Start date: 08/11/12 4:53:00, Duration: 30 day, Stop date: 09/10/12 4:52:00 nitroglycerin 0.4 mg 0.4 mg, 1 tab, Route: SL, Drug 08/11/2012 08/11/2012 Discontinued sublingual tablet form: TAB, Q5Min, PRN Chest Pain, Start date: 08/11/12 4:51:00, Duration: 30 day, Stop date: 09/10/12 4:50:00 atropine 0.5 mg, 5 mL, Route: IVP, Drug 08/11/2012 08/11/2012 Discontinued form: INJ, PRN, PRN Bradycardia, Start date: 08/11/12 4:51:00, Duration: 30 day, Stop date: 09/10/12 4:50:00 Vital Signs Most recent to oldest [Reference Range]: 1 2 3 Height 160.02 cm (08/11/2012 05:02:00) 157.48 cm (08/10/2012 19:07:00) 157.48 cm (08/10/2012 14:46:00) Temperature Oral [96.4-99.1 DegF] 98.4 DegF (08/11/2012 07:45:00) 98.3 DegF (08/11/2012 05:00:00) Systolic Blood Pressure [90-140 mmHg] 159 mmHg *HI* (08/11/2012 07:45:00) 180 mmHg *HI* (08/11/2012 05:00:00) Diastolic Blood Pressure [60-90 mmHg] 66 mmHg (08/11/2012 07:45:00) 67 mmHg (08/11/2012 05:00:00) Respiratory Rate [14-20 BRMIN] 20 BRMIN (08/11/2012 07:45:00) 16 BRMIN (08/11/2012 05:00:00) Peripheral Pulse Rate [60-100 bpm] 59 bpm *LOW* (08/11/2012 07:45:00) 73 bpm (08/11/2012 05:00:00) Weight 62.727 kg (08/11/2012 05:02:00) 17.273 kg (08/10/2012 19:07:00) 17.273 kg (08/10/2012 14:46:00) Results BEDSIDE GLUCOSE TESTING Most recent to oldest [Reference Range]: 1 2 Gluc POC Lif[place]n [70-99 mg/dL] 101 mg/dL 1 *HI* (08/11/2012 08:05:00) 176 mg/dL 2 *HI* (08/11/2012 04:07:00) Comment1 Notify RN/MD *NA* (08/11/2012 08:05:00) 1Interpretive Data: Upper Reportable Limit: 200 mg/dL. 2Interpretive Data: Upper Reportable Limit: 200 mg/dL. CHEMISTRY Most recent to oldest [Reference Range]: 1 2 Sodium Lvl [135-145 mEq/L] 130 mEq/L *LOW* (08/11/2012 10:59:00) 129 mEq/L *LOW* (08/10/2012 16:25:00) Potassium Lvl [3.5-5.1 mEq/L] 4.1 mEq/L (08/11/2012 10:59:00) 4.5 mEq/L (08/10/2012 16:25:00) Chloride Lvl [95-109 mEq/L] 96 mEq/L (08/11/2012 10:59:00) 94 mEq/L *LOW* (08/10/2012 16:25:00) CO2 [24-32 mEq/L] 21 mEq/L *LOW* (08/11/2012 10:59:00) 24 mEq/L (08/10/2012 16:25:00) AGAP [10.0-20.0 mEq/L] 17.1 mEq/L (08/11/2012 10:59:00) 15.5 mEq/L (08/10/2012 16:25:00) Creatinine Lvl [0.5-1.4 mg/dL] 0.9 mg/dL (08/11/2012 10:59:00) 0.7 mg/dL (08/10/2012 16:25:00) eGFR 66 mL/min/1.73m2 3 *NA* (08/11/2012 10:59:00) 89 mL/min/1.73m2 4 *NA* (08/10/2012 16:25:00) BUN [7-22 mg/dL] 12 mg/dL (08/11/2012 10:59:00) 12 mg/dL (08/10/2012 16:25:00) B/C Ratio [6-25] 13 (08/11/2012 10:59:00) 17 (08/10/2012 16:25:00) Glucose Lvl [70-99 mg/dL] 224 mg/dL 5 *HI* (08/11/2012 10:59:00) 108 mg/dL 6 *HI* (08/10/2012 16:25:00) Total Protein [6.4-8.4 g/dL] 6.8 g/dL (08/11/2012 10:59:00) 8.1 g/dL (08/10/2012 16:25:00) Albumin Lvl [3.5-5.0 g/dL] 2.9 g/dL *LOW* (08/11/2012 10:59:00) 3.7 g/dL (08/10/2012 16:25:00) Globulin [2.0-4.0 g/dL] 3.9 g/dL (08/11/2012 10:59:00) 4.4 g/dL *HI* (08/10/2012 16:25:00) A/G Ratio [0.7-1.6] 0.7 (08/11/2012 10:59:00) 0.8 (08/10/2012 16:25:00) Calcium Lvl [8.5-10.5 mg/dL] 8.5 mg/dL (08/11/2012 10:59:00) 9.1 mg/dL (08/10/2012 16:25:00) ALT [0-65 unit/L] 18 unit/L (08/11/2012 10:59:00) 20 unit/L (08/10/2012:) AST [0-37 unit/L] 20 unit/L (08/11/2012:59:00) 19 unit/L (08/10/2012:) Alk Phos [39-136 unit/L] 84 unit/L (08/11/2012:59:00) 97 unit/L (08/10/2012:) Bili Total [0.2-1.3 mg/dL] 0.4 mg/dL (08/11/2012:59:00) 0.3 mg/dL (08/10/2012::) Total CK [12-191 unit/L] 136 unit/L (08/10/2012) CK MB [0.5-3.6 ng/mL] 3.2 ng/mL (08/10/2012:) CK MB Index [0.0-2.5] 2.4 (08/10/2012) Troponin-I [0.00-0.40 ng/mL] <0.02 ng/mL (08/10/2012::) BNP [<=100 pg/mL] 102 pg/mL 7 *HI* (08/10/2012) 3Result Comment: The eGFR is calculated using [...] be mul tiplied by the estimated BMI. 4Result Comment: The eGFR is calculated using [...] be mul tiplied by the estimated BMI. 5Interpretive Data: Adult reference range values reflect the clinical guidelines of the [place] [employer]. 6Interpretive Data: Adult reference range values reflect the clinical guidelines of the [place] [employer]. 7Interpretive Data: Elevated results are in line with increasing severity of congestive heart failure. Minor elevations between 100 and 300 may be seen with Myocardial Ischemia, Sodium retaining drugs, and compensated/treated heart failure. HEMATOLOGY Most recent to oldest [Reference Range]: 1 2 WBC [3.7-10.4 K/CMM] 6.9 K/CMM (08/11/2012:59:00) 8.0 K/CMM (08/10/2012 16:25:00) RBC [4.20-5.40 M/CMM] 4.21 M/CMM (08/11/2012:59:) 4.33 M/CMM (08/10/2012 16:25:00) Hgb [12.0-16.0 g/dL] 10.9 g/dL *LOW* (08/11/2012:59:00) 11.6 g/dL *LOW* (08/10/2012 16:25:00) Hct [36.0-48.0 %] 34.0 % *LOW* (08/11/2012:59:00) 34.9 % *LOW* (08/10/2012 16:25:00) MCV [81.0-99.0 fL] 80.8 fL *LOW* (08/11/2012:59:00) 80.6 fL *LOW* (08/10/2012 16:25:00) MCH [27.0-31.0 pg] 25.9 pg *LOW* (08/11/2012 10:59:00) 26.8 pg *LOW* (08/10/2012 16:25:00) MCHC [32.0-36.0 g/dL] 32.1 g/dL (08/11/2012 10:59:00) 33.2 g/dL (08/10/2012 16:25:00) RDW [11.5-14.5 %] 14.3 % (08/11/2012 10:59:00) 14.4 % (08/10/2012 16:25:00) Platelet [133-450 K/CMM] 275 K/CMM (08/11/2012 10:59:00) 281 K/CMM (08/10/2012 16:25:00) MPV [7.4-10.4 fL] 7.5 fL (08/11/2012 10:59:00) 7.2 fL *LOW* (08/10/2012 16:25:00) Segs [45.0-75.0 %] 66.7 % (08/11/2012 10:59:00) 58.2 % (08/10/2012 16:25:00) Lymphocytes [20.0-40.0 %] 20.9 % (08/11/2012 10:59:00) 27.5 % (08/10/2012 16:25:00) Monocytes [2.0-12.0 %] 10.3 % (08/11/2012 10:59:00) 9.9 % (08/10/2012 16:25:00) Eosinophils [0.0-4.0 %] 1.8 % (08/11/2012 10:59:00) 3.7 % (08/10/2012 16:25:00) Basophils [0.0-1.0 %] 0.3 % (08/11/2012 10:59:00) 0.7 % (08/10/2012 16:25:00) Segs-Bands # [1.5-8.1 K/CMM] 4.6 K/CMM (08/11/2012 10:59:00) 4.7 K/CMM (08/10/2012 16:25:00) Lymphocytes # [1.0-5.5 K/CMM] 1.4 K/CMM (08/11/2012 10:59:00) 2.2 K/CMM (08/10/2012 16:25:00) Monocytes # [0.0-0.8 K/CMM] 0.7 K/CMM (08/11/2012 10:59:00) 0.8 K/CMM (08/10/2012 16:25:00) Eosinophils # [0.0-0.5 K/CMM] 0.1 K/CMM (08/11/2012 10:59:00) 0.3 K/CMM (08/10/2012 16:25:00) Basophils # [0.0-0.2 K/CMM] 0.0 K/CMM (08/11/2012 10:59:00) 0.1 K/CMM (08/10/2012 16:25:00)
--- OUTSIDE RECORDS SUMMARY | 2018-04-13 08:37 | XMS REPORT | CCD ---
Author Author Auto Generated Organization [facility] [place] Address Unknown Phone Unavailable Care Team Providers Care Manager Support Name Role Phone Jeffrey Carty CP Allergies, Adverse Reactions, Alerts Substance Reaction Status hydrALAZINE Active NKDA Active penicillins Active Problem List Condition Effective Dates Status Diabetes mellitus Resolved Hyperlipidemia Resolved Hypertension Resolved
--- OUTSIDE RECORDS SUMMARY | 2018-04-13 08:37 | XMS REPORT | CCD ---
Author Author Auto Generated Organization [facility] - [place] Address Unknown Phone Unavailable Care Team Providers Care Offensive Coordinator Name Role Phone Jeffrey Carty CP Allergies, Adverse Reactions, Alerts Substance Reaction Status hydrALAZINE Active NKDA Active penicillins Active Problem List Condition Effective Dates Status Diabetes mellitus Resolved Hyperlipidemia Resolved Hypertension Resolved
[2018-04-13 09:40] VITALS: BP 219/87
[2018-04-13 10:57] VITALS: BP 112/45
[2018-04-13 11:12] VITALS: BP 126/80
--- NOTE | 2018-04-13 11:25 | NUR ---
Patient brought to room E3 via stretcher. 1030 room time. Anesthesia at bedside assessing patient. Patient hooked to monitors and baseline vitals obtained. 1035-Physician arrives for procedure and time out performed with all participating staff and all agree. 1036- Hurricaine spray x2 administered for procedure. Patient tolerated well. 1039-SAMUEL probe inserted and procedure begins. 1047- Bubble study done as ordered by physician. 1050-SAMUEL probe removed by physician. Procedure end. Patient tolerated procedure well. Patient unhooked from monitors and placed on 3L oxygen for transport to cath recovery with learning support assistant present.
[2018-04-13 11:27] VITALS: BP 154/56
[2018-04-13 11:42] VITALS: BP 157/61
[2018-04-13 11:57] VITALS: BP 164/53
== END | disposition home or self-care (01) ==
LOC: CATH LAB 08:33 → EDSTATUS 10:00
PROVIDERS: ATTEND Internal Medicine
DX: I35.0 Nonrheumatic aortic (valve) stenosis (principal); I10 Essential (primary) hypertension; R07.9 Chest pain, unspecified; R94.31 Abnormal electrocardiogram [ECG] [EKG]; E11.9 Type 2 diabetes mellitus without complications; Z88.0 Allergy status to penicillin; Z01.812 Encounter for preprocedural laboratory examination; Z79.84 Long term (current) use of oral hypoglycemic drugs
CPT/HCPCS: 36415 ×2; 80048; 82948; 85025; 85610; 93312; 93320; 93325; J2001; J2250; J2704; J7030; 93307

== ENCOUNTER 2018-04-23 10:36 | Emergency (ER) | payer MEDICARE ==
[~2018-04-23] VITALS: Ht 157.5 cm; Wt 63.5 kg
[~2018-04-23 10:36] MED LIST changes: -BENZOCAINE 20% SPR 60 ML CAN ONE; -FENTANYL CITRATE/PF 100MCG/2 ML INJ ONE; -INSULIN REGULAR, HUMAN 100 UNIT/1 ML 3ML VIAL ONE; -LIDOCAINE HCL 2% LOCAL INJ 5 ML SDV VIAL INJ ONE; -MIDAZOLAM HCL 2 MG/2 ML VIAL ONE; -PROPOFOL IV EMULSION 10 MG/ML 20 ML VIAL ONE; -SODIUM CHLORIDE 0.9% 1000ML 1,000 ML ONE
--- NOTE | 2018-04-23 11:47 | Diagnostic Imaging Report ---
Knee complete bilateral. CPT code: 66575 x 2 History: Fall Comparison: None. Four views of the right knee were performed. No fracture or dislocation seen. Mild lateral compartment narrowing with prominence of the tibial spines. Mild patellofemoral compartment narrowing. No effusion. Four views of the left knee were performed. No fracture or dislocation is seen. Mild lateral greater than medial compartment narrowing with prominence of the tibial spines. Mild patellofemoral compartment narrowing. No effusion. The bones are normally mineralized. There are calcifications throughout the arterial structures. IMPRESSION: No acute traumatic pathology. Bilateral osteoarthritis as described above. Thank you for this referral. Signed by: Dr. Debbi Cross MD on 04/23/2018 11:43 AM
--- NOTE | 2018-04-23 11:48 | Diagnostic Imaging Report ---
EXAMINATION: CHEST SINGLE (PORTABLE) COMPARISON: None INDICATION: Fall ^ERMD ORDER ^[id number] ^1127 ^Y DISCUSSION: Frontal view of the chest obtained at 1110 hours. HEART AND MEDIASTINUM: The cardiomediastinal silhouette is unremarkable. LINES: None LUNGS: Subsegmental atelectasis in the left midlung field. Right lung is clear. No pneumonia or pulmonary edema. PLEURA: No pleural effusion or pneumothorax. BONES AND SOFT TISSUES: No fracture or dislocation lesion. The soft tissues are normal. IMPRESSION: No acute traumatic pathology by x-ray. Signed by: Dr. Debbi Cross MD on 04/23/2018 11:44 AM
[2018-04-23 12:07] LABS: BASOPHILS # (AUTO) 0.1 (0.0-0.1); BASOPHILS % 0.7 % (0.0-1.0); EOSINOPHILS # (AUTO) 0.2 (0.0-0.4); EOSINOPHILS % 2.8 % (0.0-6.0); HEMATOCRIT 34.9 % (34.2-44.1); HEMOGLOBIN 11.3 g/dL (12.0-16.0); LYMPHOCYTES # (AUTO) 1.7 (1.0-3.2); LYMPHOCYTES % 24.5 % (18.0-39.1); MEAN CORPUSCULAR HEMOGLOBIN 26.4 pg (28-32); MEAN CORPUSCULAR HGB CONC 32.4 g/dL (31-35); MEAN CORPUSCULAR VOLUME 81.5 fL (81-99); MONOCYTES % 13.5 % (4.4-11.3); NEUTROPHILS # (AUTO) 4.1 (2.1-6.9); NEUTROPHILS % 58.1 % (38.7-80.0); PLATELET COUNT 328 x10e3/uL (140-360); RED BLOOD COUNT 4.28 x10e6/uL (3.6-5.1); RED CELL DISTRIBUTION WIDTH 13.6 % (11.7-14.4)
[2018-04-23 12:11] LABS: INR 0.85; PROTHROMBIN TIME 12.1 seconds (11.9-14.5)
[2018-04-23 12:12] LABS: PARTIAL THROMBOPLASTIN TIME 28.1 seconds (23.8-35.5)
[2018-04-23 12:22] LABS: ALANINE AMINOTRANSFERASE 16 IU/L (0-55); ALBUMIN 3.3 g/dL (3.5-5.0); ALBUMIN/GLOBULIN RATIO 0.9 (0.8-2.0); ALKALINE PHOSPHATASE 78 IU/L (40-150); ANION GAP 11.5 mmol/L (8-16); BLOOD UREA NITROGEN 11 mg/dL (7-26); BUN/CREATININE RATIO 14 (6-25); CALCIUM 9.1 mg/dL (8.4-10.2); CARBON DIOXIDE 25 mmol/L (22-29); CHLORIDE 96 mmol/L (98-107); CREATININE, SERUM 0.81 mg/dL (0.57-1.11); EST GLOMERULAR FILTRATION RATE > 60 ML/MIN (60-); GLUCOSE 260 mg/dL (74-118); POTASSIUM 4.5 mmol/L (3.5-5.1); SODIUM 128 mmol/L (136-145)
== END 2018-04-23 13:29 | disposition home or self-care (01) ==
LOC: ER 10:36
DX: S80.02XA Contusion of left knee, initial encounter (principal); S80.01XA Contusion of right knee, initial encounter; S80.11XA Contusion of right lower leg, initial encounter; W18.30XA Fall on same level, unspecified, initial encounter; Y92.008 Other place in unspecified non-institutional (private) residence as the place of occurrence of the external cause
CPT/HCPCS: 36415; 71045; 80053; 85025; 85610; 85730; 93971; 99284